=== PATIENT | male | born 1950 | race Hispanic/Latino ===

== ENCOUNTER → 2018-06-25 | Outpatient (CLI) | payer BC | END | disposition home or self-care (01) | LOC: RAH 08:36 | PROVIDERS: ATTEND Physical Medicine & Rehabilitation | DX: M65.871 Other synovitis and tenosynovitis, right ankle and foot (principal); M77.31 Calcaneal spur, right foot | CPT/HCPCS: 73721 ==

== ENCOUNTER 2019-04-23 07:55 | Day surgery (SDC) | payer BC ==
[2019-04-19 14:55] VITALS: BP 97/61
[2019-04-19 15:11] LABS: BASOPHILS % (AUTO) 0.3 % (0.0-5.0); EOSINOPHILS % (AUTO) 3.2 % (0.0-8.0); HEMATOCRIT 37.3 % (42-54); LYMPHOCYTES % (AUTO) 28.4 % (21.0-51.0); MEAN CORPUSCULAR HGB CONC 33.4 g/dL (32.0-36.0); MEAN CORPUSCULAR VOLUME 95.7 fL (79-99); MONOCYTES % (AUTO) 6.5 % (3.0-13.0); NEUTROPHILS % (AUTO) 61.6 % (40.0-77.0); PLATELET COUNT (AUTO) 284 K/uL (130-400); WHITE BLOOD COUNT (AUTO) 5.9 K/uL (4.8-10.8)
[2019-04-19 15:23] LABS: CREATININE 0.9 mg/dL (0.5-1.5); POTASSIUM 4.5 mmol/L (3.5-5.1)
[2019-04-23] VITALS (12 sets, daily range): BP systolic 111–144; BP diastolic 70–80
[~2019-04-23] VITALS: Ht 175.3 cm; Wt 86.3 kg
[~2019-04-23 07:55] MED LIST: ASPI-1181 PO; ATOR40TA71 PO; FENTANYL TP; HYDROCODONE PO; LISI-613 PO; METO-408 PO; OMEP40CA37 PO; SILD20TA14 PO; TAMS-1 PO; TRAZ-185 PO; [UNRECOGNIZED DRUG - OTHER] PO
[2019-04-23] MEDS: LACTATED RINGERS 1000ML 1,000 ML IV SCH ×2 (09:54→12:07)
[2019-04-23] MEDS: CEFAZOLIN SODIUM 1 GM VIAL IVP SCH ×2 (09:55→11:00)
[2019-04-23] MEDS ORDERED: LIDOCAINE PF 2% 5ML ABBOJECT ONE (10:40)
[2019-04-23] MEDS ORDERED: ONDANSETRON HCL 4 MG/2 ML VIAL ONE (10:41)
[2019-04-23] MEDS ORDERED: MIDAZOLAM HCL 1 MG/ML 2ML VIAL ONE (10:41)
[2019-04-23] MEDS ORDERED: PROPOFOL 10 MG/ML 20ML VIAL IV ONE (10:42)
[2019-04-23] MEDS ORDERED: ROCURONIUM 10MG/1ML SYR 10 MG/ML ML ONE (10:42)
[2019-04-23] MEDS ORDERED: ROPIVACAINE 0.5% 5MG/ML 30ML IJ ONE (10:43)
[2019-04-23] MEDS ORDERED: FENTANYL CITRATE PF 50 MCG/1 ML 2ML VIAL ONE (11:16)
[2019-04-23] MEDS ORDERED: EPHEDRINE SULFATE 50 MG/ML AMPULE ONE (11:32)
[2019-04-23] MEDS ORDERED: GLYCOPYRROLATE 1 MG/5 ML SYRINGE ONE (12:07)
[2019-04-23] MEDS ORDERED: NEOSTIGMINE 5MG/5ML SYR IV ONE (12:07)
[2019-04-23] MEDS ORDERED: KETOROLAC TROMETHAMINE 30MG/ML ONE (12:40)
[2019-04-23] MEDS ORDERED: MORPHINE SULFATE 4 MG/1ML SYG ONE (12:40)
--- NOTE | 2019-04-23 13:11 | NUR ---
RECEIVE PT RECEIVED FROM PACU VIA STRETCHER AWAKE ALERT ORIENTED X3. PT STABLE. NO COMPLAINTS MADE. DRESSING TO LEFT INGUINAL DRY AND INTACT, NO OOZING NOTED, SITE SOFT, ABDOMEN SOFT. CALL HERRON WITHIN REACH. WILL CONTINUE TO MONITOR PT. WILL CALL FOR TO COME IN TO ROOM.
--- NOTE | 2019-04-23 13:40 | NUR ---
ACTIVITY PT ASSISTED TO BATHROOM, AMBULATED SLOWLY WITHOUT ANY PROBLEMS. VOIDED 400 ML CLEAR YELLOW URINE. ABDOMEN, LEFT GROIN INCISION AREA REMAINS SOFT, DRESSING DRY AND INTACT. NO OOZING NOTED.
--- NOTE | 2019-04-23 14:00 | NUR ---
DISCHARGE PT DISCHARGED VIA WHEELCHAIR WITH . PT STABLE. NO COMPLAINTS MADE. DRESSING TO LEFT GROIN REMAINS DRY AND INTACT, NO OOZING NOTED, SITE SOFT, ABDOMEN SOFT. TOLERATED ORAL FLUIDS WELL. DISCHARGE INSTRUCTIONS GIVEN TO AND PT, VERBALIZED UNDERSTANDING.
== END 2019-04-23 14:00 | disposition home or self-care (01) ==
LOC: DAH 07:55
PROVIDERS: ATTEND Surgery
DX: K40.90 Unilateral inguinal hernia, without obstruction or gangrene, not specified as recurrent (principal); E78.5 Hyperlipidemia, unspecified; I10 Essential (primary) hypertension; M81.0 Age-related osteoporosis without current pathological fracture; F41.9 Anxiety disorder, unspecified; K21.9 Gastro-esophageal reflux disease without esophagitis; E66.9 Obesity, unspecified; F17.210 Nicotine dependence, cigarettes, uncomplicated; Z72.89 Other problems related to lifestyle; Z79.82 Long term (current) use of aspirin; Z79.899 Other long term (current) drug therapy; Z68.28 Body mass index [BMI] 28.0-28.9, adult; Z98.890 Other specified postprocedural states; Z79.2 Long term (current) use of antibiotics; Z82.49 Family history of ischemic heart disease and other diseases of the circulatory system; Z83.3 Family history of diabetes mellitus
CPT/HCPCS: 36415; 49505; 64425; 80048; 85025; 93005; A4450; A4452; C1729; C1781; J0690; J1885; J2001; J2250; J2270; J2405; J2704; J2710; J2795; J3010; J3490 ×2; J7120 ×2

== ENCOUNTER → 2019-05-13 | Outpatient (CLI) | payer BC | END | disposition home or self-care (01) | LOC: RAH 08:56 | PROVIDERS: ATTEND Internal Medicine Gastroenterology | DX: R93.3 Abnormal findings on diagnostic imaging of other parts of digestive tract (principal); R10.11 Right upper quadrant pain | CPT/HCPCS: 76700; 78227; A9537 ==

== ENCOUNTER → 2019-09-12 | Outpatient (CLI) | payer BC ==
[~2019-09-12] MED LIST changes: +OMEP40CA13 PO; -OMEP40CA37 PO
== END | disposition home or self-care (01) ==
LOC: RAH 13:26
PROVIDERS: ATTEND Physical Medicine & Rehabilitation
DX: M47.22 Other spondylosis with radiculopathy, cervical region (principal); M25.78 Osteophyte, vertebrae; M48.02 Spinal stenosis, cervical region; M25.512 Pain in left shoulder
CPT/HCPCS: 72141; 73030

== ENCOUNTER 2020-03-05 17:30 | Emergency (ER) | payer BC ==
[2020-03-05] MEDS ORDERED: IOHEXOL 350 MG/ML 100ML INFUS..BTL IV ONE (18:52)
[2020-03-05] MEDS ORDERED: SODIUM CHLORIDE 0.9% 1000ML 1,000 ML IV ONE (19:36)
== END 2020-03-05 21:13 | disposition home or self-care (01) ==
LOC: EDH 17:30
DX: S16.1XXA Strain of muscle, fascia and tendon at neck level, initial encounter (principal); S20.219A Contusion of unspecified front wall of thorax, initial encounter; I10 Essential (primary) hypertension; E78.00 Pure hypercholesterolemia, unspecified; Z90.49 Acquired absence of other specified parts of digestive tract; V49.49XA Driver injured in collision with other motor vehicles in traffic accident, initial encounter; Y93.19 Activity, other involving water and watercraft; Y92.488 Other paved roadways as the place of occurrence of the external cause; Y99.8 Other external cause status
CPT/HCPCS: 36415; 70450; 71045; 71260; 72125; 74177; 80053; 81003; 82550; 83690; 84484; 85025; 85610; 85730; 93005; 99285; J7030; Q9967

== ENCOUNTER → 2022-09-20 | Outpatient (CLI) | payer BC, MEDICARE ==
[~2022-09-20] MED LIST changes: -ASPI-1181 PO; +ASPI-1443 PO; +IOHEXOL 350 MG/ML 100ML INFUS..BTL IV ONE; -LISI-613 PO; +LISI20TA24 PO; -OMEP40CA13 PO; +OMEP40CA21 PO
== END | disposition home or self-care (01) ==
LOC: RAH 08:30
PROVIDERS: ATTEND Internal Medicine Cardiovascular Disease
DX: I71.21 Aneurysm of the ascending aorta, without rupture (principal); I70.0 Atherosclerosis of aorta; I35.1 Nonrheumatic aortic (valve) insufficiency; I51.7 Cardiomegaly; E78.00 Pure hypercholesterolemia, unspecified
CPT/HCPCS: 71275; Q9967

== ENCOUNTER 2023-11-06 05:01 | Observation (INO) | payer BC, MEDICARE ==
[2023-11-01 12:36] LABS: BASOPHILS # (AUTO) 0.02 K/uL (0.00-0.20); BASOPHILS % (AUTO) 0.4 % (0.0-5.0); EOSINOPHILS % (AUTO) 3.7 % (0.0-8.0); HEMATOCRIT 38.1 % (42-54); IMMATURE GRANULOCYTE ABSOLUTE 0.01 K/uL (0-1); LYMPHOCYTES # (AUTO) 1.6 K/uL (1.0-4.8); LYMPHOCYTES % (AUTO) 28.5 % (21.0-51.0); MEAN CORPUSCULAR HEMOGLOBIN 31.5 pg (27.0-33.0); MEAN CORPUSCULAR HGB CONC 33.3 g/dL (32.0-36.0); MEAN CORPUSCULAR VOLUME 94.5 fL (79-99); MONOCYTES # (AUTO) 0.4 K/uL (0.1-1.0); MONOCYTES % (AUTO) 7.2 % (3.0-13.0); NEUTROPHILS # (AUTO) 3.3 K/uL (1.8-7.7); PLATELET COUNT (AUTO) 213 K/uL (130-400); RED BLOOD CELL COUNT(AUTO) 4.03 MIL/uL (4.50-6.20); RED CELL DISTRIBUTION WIDTH 13.2 % (11.0-15.5); WHITE BLOOD COUNT (AUTO) 5.4 K/uL (4.8-10.8)
[2023-11-01 13:05] LABS: INR 0.98 (0.85-1.15); PROTHROMBIN TIME 11.4 SEC (9.6-11.6)
[2023-11-01 13:06] LABS: PARTIAL THROMBOPLASTIN TIME 29.7 SEC (26.3-35.5)
[2023-11-01 13:13] VITALS: BP 132/74; PULSE 69; RESP 19
[~2023-11-06] VITALS: Ht 172.7 cm; Wt 94.7 kg
[2023-11-06] VITALS (24 sets, daily range): BP systolic 133–156; BP diastolic 80–95; PULSE 60–75; RESP 15–18; O2SAT 97
[~2023-11-06 05:01] MED LIST changes: +BIO COMPLETE PO; +CETI1TAB PO; +DOCU-116 PO; +ERGO500093 PO; +ESOM20CA31 PO; -IOHEXOL 350 MG/ML 100ML INFUS..BTL IV ONE; +MAGN250C PO; +MILK THISTLE PO; +MULT-1283 PO; +PREG50CA64 PO; -TRAZ-185 PO; +TRAZ-187 PO; +VITAMIN D3 PO
[2023-11-06] MEDS ORDERED: LACTATED RINGERS 1000ML 1,000 ML IV ONE (06:19)
[2023-11-06] MEDS: CEFAZOLIN SODIUM 2 GM VIAL ONE ×2 (06:19→14:28)
[2023-11-06] MEDS ORDERED: 0.9%NACL 48.45 ML, ROPIVACAINE 0.5% 49.25ML, EPINEPH 0.5MG KETOROLAC 30MG,CLONIDINE 80MCG IV PRN ×5 (07:00)
[2023-11-06] MEDS ORDERED: MEPERIDINE-PF 25 MG/ML SYG IV ONE (08:30)
[2023-11-06] MEDS ORDERED: MEPERIDINE-PF 25 MG/ML SYG ONE (08:35)
[2023-11-06] MEDS ORDERED: PROPOFOL 10 MG/ML 20ML VIAL IV ONE (11:58)
[2023-11-06] MEDS ORDERED: LIDOCAINE PF 100MG/5ML (2%) SYRINGE 5ML ONE (11:58)
[2023-11-06] MEDS ORDERED: SUCCINYLCHOLINE CHLORIDE 20 MG/ML 10 ML VIAL ONE (11:58)
[2023-11-06] MEDS ORDERED: MIDAZOLAM HCL 1 MG/ML 2ML VIAL ONE (11:59)
[2023-11-06] MEDS ORDERED: GLYCOPYRROLATE 0.2 MG/ML 5 ML VIAL ONE (11:59)
[2023-11-06] MEDS ORDERED: DEXAMETHASONE SOD PHOSPHATE 10MG/ML 1ML VIAL ONE (11:59)
[2023-11-06] MEDS ORDERED: ONDANSETRON 4MG INJ ONE (11:59)
[2023-11-06] MEDS ORDERED: ROCURONIUM BROMIDE 10MG/1ML 5ML VL ONE (11:59)
[2023-11-06] MEDS ORDERED: NEOSTIGMINE METHYLSULFATE 1MG/ML IV ONE (11:59)
[2023-11-06] MEDS ORDERED: FENTANYL CITRATE PF 50 MCG/1 ML 2ML VIAL ONE ×3 (12:00→15:08)
[2023-11-06] MEDS ORDERED: CEFAZOLIN SODIUM 1 GM VIAL ONE (13:18)
[2023-11-06] MEDS ORDERED: GENTAMICIN SULFATE 80 MG/2 ML VIAL ONE (13:19)
[2023-11-06] MEDS: TRANEXAMIC ACID 1000MG/10ML ONE ×2 (14:20→15:57)
[2023-11-06] MEDS ORDERED: ACETAMINOPHEN 325 MG TAB PO PRN ×3 (22:00)
[2023-11-06] MEDS ORDERED: DIPHENHYDRAMINE HCL 25 MG CAPSULE PO SCH (22:00)
[2023-11-06] MEDS ORDERED: LACTULOSE 20 GM/30 ML UDCUP PO PRN (22:00)
[2023-11-06] MEDS ORDERED: CEFAZOLIN SODIUM 2 GM VIAL IVPB SCH (22:00)
[2023-11-06] MEDS ORDERED: DIPHENOXYLATE HCL/ATROPINE 2.5/0.025 MG TAB PO PRN (22:00)
[2023-11-06] MEDS ORDERED: MAG/ALUM/SIMETH 30 ML UDCUP PO PRN (22:00)
[2023-11-06] MEDS ORDERED: HYDROMORPH /0.9% NACL/PF PCA 50 ML IV PRN (22:00)
[2023-11-06] MEDS ORDERED: ACETAMINOPHEN 325 MG TAB PO SCH (22:00)
[2023-11-06] MEDS ORDERED: DiphenhydrAMINE HCL 50 MG/ML VIAL IM PRN (22:00)
[2023-11-06] MEDS ORDERED: ONDANSETRON 4MG INJ IVP PRN (22:00)
[2023-11-06] MEDS ORDERED: DIPHENHYDRAMINE HCL 25 MG CAPSULE PO PRN (22:00)
[2023-11-06] MEDS ORDERED: BENZOCAINE/MENTH/CETYLPYRD CL 1 EACH LOZENGE MM PRN (22:00)
[2023-11-06] MEDS ORDERED: TRAMADOL HCL 50 MG TABLET PO PRN (22:00)
[2023-11-06] MEDS ORDERED: ACETAMINOPHEN PO PRN (22:30)
[2023-11-06] MEDS ORDERED: NON-FORMULARY MEDICATION 1 EACH (Esomeprazole Magnesium (Nexium) 20 MG) PO PRN (22:30)
[2023-11-06] MEDS ORDERED: HYDROCODONE PO PRN (22:30)
[2023-11-06] MEDS ORDERED: TRAZODONE HCL 100 MG TABLET PO PRN (22:30)
[2023-11-06] MEDS: 0.9%NACL 1000ML 1,000 ML IV SCH (22:52)
[2023-11-06] MEDS ORDERED: HOME MEDICATION 1 EACH PO PRN (23:00)
[2023-11-06] MEDS ORDERED: COMPOUND IV REFRIGERATED 1 EACH IVSOLN MISC PRN (23:30)
[2023-11-06] MEDS: RIVAROXABAN 10 MG TABLET PO SCH (23:36)
[2023-11-06] MEDS: CEFAZOLIN SODIUM 3 GM in DEXTROSE 5%-WATER 100 ML IVPB SCH (23:36)
[2023-11-07 00:32] VITALS: BP 134/82; PULSE 89; RESP 18
[2023-11-07 03:59] VITALS: BP 104/68; PULSE 90; RESP 18
[2023-11-07 04:57] LABS: HEMATOCRIT 33.1 % (42-54); MEAN CORPUSCULAR HGB CONC 34.1 g/dL (32.0-36.0); MEAN CORPUSCULAR VOLUME 93.8 fL (79-99); RED BLOOD CELL COUNT(AUTO) 3.53 MIL/uL (4.50-6.20); RED CELL DISTRIBUTION WIDTH 13.2 % (11.0-15.5); WHITE BLOOD COUNT (AUTO) 11.9 K/uL (4.8-10.8)
[2023-11-07 05:10] LABS: CREATININE 0.7 mg/dL (0.5-1.5); POTASSIUM 3.5 mmol/L (3.5-5.1)
[2023-11-07] MEDS: CEFAZOLIN SODIUM 3 GM in DEXTROSE 5%-WATER 100 ML IVPB SCH (06:44)
[2023-11-07 08:00] VITALS: O2SAT 97
[2023-11-07] MEDS: 0.9%NACL 1000ML 1,000 ML IV SCH (08:00)
[2023-11-07] MEDS: RIVAROXABAN 10 MG TABLET PO SCH (08:45)
[2023-11-07] MEDS ORDERED: METOPROLOL SUCCINATE 25 MG TAB.SR.24H PO SCH (09:00)
[2023-11-07] MEDS ORDERED: PREGABALIN 25 MG CAP PO SCH (09:00)
[2023-11-07] MEDS ORDERED: PANTOPRAZOLE 40 MG TAB DR PO SCH (09:00)
[2023-11-07] MEDS ORDERED: DOCUSATE SODIUM 100 MG CAP PO SCH (09:00)
[2023-11-07] MEDS ORDERED: LISINOPRIL 20 MG TABLET PO SCH (09:00)
[2023-11-07] MEDS ORDERED: ATORVASTATIN 40 MG TABLET PO SCH (09:00)
[2023-11-07] MEDS ORDERED: NON-FORMULARY MEDICATION 1 EACH (Omeprazole 40 MG) PO SCH (09:00)
[2023-11-07] MEDS ORDERED: TAMSULOSIN HCL 0.4 MG CAP.ER.24H PO SCH (09:00)
[2023-11-07 11:47] VITALS: BP 107/66; PULSE 66; RESP 17
== END 2023-11-07 17:15 | disposition home or self-care (01) ==
LOC: DAH 05:01 → DAHIP 05:02 → 4CH 21:05
PROVIDERS: ADMIT Orthopaedic Surgery; ATTEND Orthopaedic Surgery
DX: M17.11 Unilateral primary osteoarthritis, right knee (principal); I10 Essential (primary) hypertension; E78.5 Hyperlipidemia, unspecified; G47.00 Insomnia, unspecified; K21.9 Gastro-esophageal reflux disease without esophagitis; N40.0 Benign prostatic hyperplasia without lower urinary tract symptoms; E66.9 Obesity, unspecified; Z68.31 Body mass index [BMI] 31.0-31.9, adult; Z79.899 Other long term (current) drug therapy; Z79.82 Long term (current) use of aspirin; Z86.2 Personal history of diseases of the blood and blood-forming organs and certain disorders involving the immune mechanism
CPT/HCPCS: 85025; 85610; 85730; 36415 ×2; 87641; 27447; 96365; 96366 ×3; 96375; 96368; 82948; 97161; 97012; 97530 ×4; 80048; 85027; 97116 ×2; G0378 ×17; A4663; J7120 ×2; A4215 ×2; A4649 ×4; J3010 ×3; J0690 ×3; J3490 ×3; J1100; J0330; J2001; J1580; J2250; J7060; J2704; J2405; J2710; J2175; A6223; A4930 ×2; C1763 ×2; C1776; A4223; A4222; A4221; A6450; J7030; A4606; Q0163

== ENCOUNTER → 2024-01-19 | Outpatient (CLI) | payer BC, MEDICARE ==
[~2024-01-19] MED LIST changes: +GADOTERATE MEGLUMINE 10 MMOL/20 ML VIAL IV ONE
== END | disposition home or self-care (01) ==
LOC: RAH 07:17
PROVIDERS: ATTEND Internal Medicine Gastroenterology
DX: R93.2 Abnormal findings on diagnostic imaging of liver and biliary tract (principal); Z90.49 Acquired absence of other specified parts of digestive tract
CPT/HCPCS: 74183; A9575

== ENCOUNTER 2024-09-03 05:44 | Observation (INO) | payer BC, MEDICARE ==
[2024-08-28 13:36] LABS: BASOPHILS # (AUTO) 0.03 K/uL (0.00-0.20); BASOPHILS % (AUTO) 0.3 % (0.0-5.0); EOSINOPHILS # (AUTO) 0.45 K/uL (0.00-0.70); EOSINOPHILS % (AUTO) 5.1 % (0.0-8.0); HEMATOCRIT 39.1 % (42-54); IMMATURE GRANULOCYTE ABSOLUTE 0.02 K/uL (0-1); LYMPHOCYTES # (AUTO) 2.3 K/uL (1.0-4.8); LYMPHOCYTES % (AUTO) 25.9 % (21.0-51.0); MEAN CORPUSCULAR HEMOGLOBIN 31.8 pg (27.0-33.0); MEAN CORPUSCULAR HGB CONC 32.5 g/dL (32.0-36.0); MEAN CORPUSCULAR VOLUME 97.8 fL (79-99); MONOCYTES # (AUTO) 0.5 K/uL (0.1-1.0); MONOCYTES % (AUTO) 5.9 % (3.0-13.0); NEUTROPHILS # (AUTO) 5.6 K/uL (1.8-7.7); NEUTROPHILS % (AUTO) 62.6 % (40.0-77.0); PLATELET COUNT (AUTO) 243 K/uL (130-400); RED CELL DISTRIBUTION WIDTH 13.3 % (11.0-15.5); WHITE BLOOD COUNT (AUTO) 8.9 K/uL (4.8-10.8)
[2024-08-28 13:38] LABS: APPEARANCE,URINE CLEAR (CLEAR); BILIRUBIN,URINE NEGATIVE (NEGATIVE); COLOR,URINE LIGHT-YELLOW (YELLOW); GLUCOSE, URINE (UA) NEGATIVE (NEGATIVE); KETONES,URINE NEGATIVE (NEGATIVE); LEUKOCYTE ESTERASE ,URINE NEGATIVE Leu/uL (NEGATIVE); NITRATE,URINE NEGATIVE (NEGATIVE); OCCULT BLOOD,URINE NEGATIVE (NEGATIVE); PH,URINE 5.5 (5.0-8.0); PROTEIN,URINE NEGATIVE (NEGATIVE); UROBILINOGEN,URINE 0.2 mg/dL (0.2-1.0)
[2024-08-28 13:39] LABS: ADD UA MICROSCOPIC NO
[2024-08-28 13:50] LABS: CREATININE 0.9 mg/dL (0.5-1.3); POTASSIUM 4.2 mmol/L (3.5-5.1)
[2024-08-28 13:51] VITALS: BP 101/62; PULSE 73; RESP 17; TEMP 97.2
[2024-08-28 13:52] LABS: INR 1.06 (0.85-1.15); PROTHROMBIN TIME 11.4 SEC (9.6-11.6)
[2024-08-28 13:53] LABS: PARTIAL THROMBOPLASTIN TIME 31.4 SEC (26.3-35.5)
[2024-09-03] VITALS (25 sets, daily range): BP systolic 97–149; BP diastolic 50–93; PULSE 64–108; RESP 13–20; TEMP 97.2–98.1; O2SAT 98
[~2024-09-03] VITALS: Ht 177.8 cm; Wt 97.1 kg
[~2024-09-03 05:44] MED LIST changes: -BIO COMPLETE PO; -CETI1TAB PO; -DOCU-116 PO; -ERGO500093 PO; -ESOM20CA31 PO; -GADOTERATE MEGLUMINE 10 MMOL/20 ML VIAL IV ONE; -MAGN250C PO; -MILK THISTLE PO; -MULT-1283 PO; -TRAZ-187 PO; +TRAZ150T79 PO; -VITAMIN D3 PO
[2024-09-03] MEDS ORDERED: dexaMETHasone SOD PHOSPHATE 10MG/ML 1ML VIAL ONE (07:10)
[2024-09-03] MEDS ORDERED: GLYCOPYRROLATE 0.2 MG/ML 5 ML VIAL ONE (07:10)
[2024-09-03] MEDS ORDERED: SUCCINYLCHOLINE CHLORIDE 20 MG/ML 10 ML VIAL ONE (07:10)
[2024-09-03] MEDS ORDERED: proPOFol 10 MG/ML 20ML VIAL IV ONE (07:10)
[2024-09-03] MEDS ORDERED: LIDOCAINE PF 100MG/5ML (2%) SYRINGE 5ML ONE (07:10)
[2024-09-03] MEDS ORDERED: FENTanyl CITRate PF 50 MCG/1 ML 2ML VIAL ONE ×3 (07:11→11:09)
[2024-09-03] MEDS ORDERED: rocuRONium bROMide 10MG/1ML 5ML VL ONE (07:11)
[2024-09-03] MEDS ORDERED: NEOSTIGMINE METHYLSULFATE 1MG/ML IV ONE (07:11)
[2024-09-03] MEDS ORDERED: ondanSETRON 4MG INJ ONE (07:11)
[2024-09-03] MEDS ORDERED: MIDAZOLAM HCL 1 MG/ML 2ML VIAL ONE (07:12)
[2024-09-03] MEDS ORDERED: ROPivacaine 0.5% 5MG/ML 30ML ONE (07:17)
[2024-09-03] MEDS: LACTATED RINGERS 1000ML 1,000 ML IV ONE (07:32)
[2024-09-03] MEDS: ceFAZolin SODIUM 2 GM VIAL ONE (07:32)
[2024-09-03] MEDS ORDERED: ceFAZolin SODIUM 1 GM VIAL ONE ×2 (07:34→09:37)
[2024-09-03] MEDS ORDERED: BUPIvacaine HCL/EPINEPHrine/PF 0.25% 10ML VIAL IJ ONE (07:35)
[2024-09-03] MEDS ORDERED: VANCOMYCIN 1G/250ML KIT 250 ML IV ONE (08:29)
[2024-09-03] MEDS: ceFAZolin SODIUM 2 GM VIAL IVPB ONE ×2 (09:14)
[2024-09-03] MEDS ORDERED: ePHEDrine SULFate 50 MG/ML AMPULE ONE ×2 (09:20→12:00)
[2024-09-03] MEDS ORDERED: FERROUS FUMARATE 324 MG TABLET PO PRN (11:30)
[2024-09-03] MEDS ORDERED: DiphenhydrAMINE HCL 50 MG/ML VIAL IVP PRN (11:30)
[2024-09-03] MEDS ORDERED: HYDROcodone/APAP 5/325 1 TAB TABLET PO PRN (11:30)
[2024-09-03] MEDS ORDERED: PoTASSium chl 10% ELIXIR 20MEQ 20 MEQ/15 ML UDCUP PO PRN (11:30)
[2024-09-03] MEDS ORDERED: ondanSETRON 4MG INJ IVP PRN (11:30)
[2024-09-03] MEDS ORDERED: PoTASSium chloRIDE 20MEQ/100ML 100 ML IV PRN (11:30)
[2024-09-03] MEDS ORDERED: ketOROlac 15MG/ML VIAL (15MG/ML) IV PRN (11:30)
[2024-09-03] MEDS ORDERED: CALCIUM CARB 500MG PO PRN (11:30)
--- NOTE | 2024-09-03 11:37 | OP ---
Operative Note: DATE OF PROCEDURE: 09/03/24 SURGEON: PA LEVI MD DEGREASER OPERATOR: [BAHMAN MALDONADO CFA] ANESTHESIA: [General anesthesia plus regional block] ANESTHESIOLOGIST/ASSOCIATE PATHOLOGIST: [Michael Jacobsen CRNA] PREOPERATIVE DIAGNOSIS: [Left knee osteoarthritis] POSTOPERATIVE DIAGNOSIS: [Left knee osteoarthritis] SYNOPSIS: [Biomet vanguard. Femur left PS 72.5. Tibia 79 fixed cruciate. Tibial liner 10 x 79/83, patella 37 x 9 mm standard] PROCEDURE: [Left total knee arthroplasty] ESTIMATED BLOOD LOSS: [150 mL] INDICATIONS: [Patient is a 73-year-old male with history chronic pain secondary to left knee osteoarthritis. The patient has been admitted for a left total knee arthroplasty after failing conservative treatment. Procedure understood, risks, benefits and possible complications and agreed signed the consent form.] DESCRIPTION OF PROCEDURE: [After adequate general anesthesia was achieved and regional block obtained the left lower extremity was prepped and draped in the usual manner previous placement of the tourniquet in the proximal thigh. The extremity was then elevated and exsanguinated with an Esmarch bandage and the tourniquet inflated to 250 mmHg the Esmarch band been then removed. With the knee in flexion a longitudinal incision was then made in the anterior aspect through the skin followed by dissection of the subcutaneous tissue. A bone infusion needle was then inserted just medial to the tibial tuberosity and through this needle we proceeded to inject into the metaphysis of the tibia a solution of 50 cc of normal saline mixed with 500 mg of vancomycin. After the needle was removed a paramedian approach was then made with the Bovie cautery cutting through the quadriceps tendon, medial patellar retinaculum and patellar tendon retinaculum. The retropatellar tendon fat was then excised and the soft tissue elements of the tibia were elevated subperiosteally and retractors were applied medially and laterally . The anterior and posterior cruciate ligaments were resected. With the use of a drill a starting hole was made in the distal femur entering the intramedullary canal and then after removal of the drill an intramedullary guide was inserted with a 5 degree valgus block that touched the distal femur and to this the distal femoral cutting guide was then applied anteriorly and was secured to the distal femur with the use of pins. The intra medullary guide was then removed and with the use of the oscillating saw we proceeded to resect the distal femur removing the fragments and the guide. The femoral sizer was then applied distally and drill holes were made removing the sizer and the 4-in-1 cutting block was then inserted and the anterior, posterior and chamfer cuts were made removing the fragments and the block. The posterior cruciate ligament retractor was then inserted posterior to the tibia and this was brought forward proceeding then to apply the external tibial alignment guide and secured the proximal cutting guide to the tibia with the use of pins. With the use of the oscillating saw the proximal cut to the tibia tibia was made. The bone fragment was removed and the trial tibia plate was chosen. At this point the menisci were removed sharply and with the use of the curved osteotome the posterior osteophytes of the femur were removed. The PS cutting guide was then inserted and the intercondylar cut was made removing the fragment and the guide. The trial components were then inserted at the femur and tibia with a trial tibial liner bringing the knee into extension noticing that the patient had a very stable knee in flexion, extension and with valgus and varus stress. The knee was maintained in extension and the patella was then addressed proceeding to measure its thickness and then with the use of the oscillating saw we removed 9 mm from the articular surface and restored the height with application of a trial component after 3 peg holes were made. The patellofemoral ligament was removed and then the patellofemoral tracking was checked noticing to be normal. At this moment all the components were removed, the tibia after the metaphyseal defect was created and while cement was being mi xed on the back table we proceeded to irrigate the joint with antibiotic solution and then cover the entry to the femoral canal with a bone plug. Once the cement was ready we proceeded to apply it first to the tibia surface inserting the final component and then to the femoral surface and inserted the final component removing the excess cement and then applying a trial liner bring ing the knee into extension for compression. Then we proceeded to irrigate the patella surface and dried it applying then bone cement and the final patellar component was inserted and was secured with application of a clamp. The joint was irrigated with a warm diluted Betadine solution while the cement dried followed by irrigation with antibiotic solution. The trial liner was removed as well as the patellar clamp and we proceeded then to irrigate the posterior aspect of the joint to remove all the remaining debris and the final tibial liner was inserted and locked against the tibia . The range of motion was checked and noticed to be adequate with full extension and flexion, no laxity in valgus or varus stress and with adequate patellofemoral tracking. The patient had no anterior or posterior drawer. After further irrigation the wound was then closed with approximation of the quadriceps tendon, patellar retinaculum and patellar tendon retinaculum with #1 Vicryl close stitches alternating with #1 Ethibond stitches. The tourniquet was then deflated and this was followed by hemostasis and closure of the subcutaneous tissue with 2-0 Monocryl inverted stitches and the skin was closed with 3-0 Monocryl subcuticularly. The wound was covered with a suction dressing followed by application of an Jesse bandage for compression and the drapes were then removed transferring the patient to the hospital bed and taken to recovery room for follow-up by anesthesia. There were no complications during the procedure.] PA LEVI MD Sep 03, 2024 11:37
[2024-09-03] MEDS: hydroMORPHone 1 MG INJ ONE ×2 (12:25→12:45)
[2024-09-03] MEDS: TRANEXAMIC ACID 1000MG/10ML ONE (12:32)
[2024-09-03] MEDS: 0.9%NACL 1000ML 1,000 ML IV SCH (14:04)
--- NOTE | 2024-09-03 14:35 | NUR ---
ORTHO COORDINATOR: TEACHING REGARDING DVT AND PNEUMONIA, PAIN EXPECTATIONS, PAIN MANAGEMENT. PATIENT IN BED. SPOUSE AT BEDSIDE. B SCD SLEEVED IN PLACE AND FUNCTIONING. INCENTIVE SPIROMETER AT BEDSIDE. PATIENT RETURN DEMONSTRATED PROPER USE OF INCENTIVE SPIROMETER AND PERFORMED FOOT FLEXION AND EXTENSION EXERCISES. PATIENT HAS RIGHT FOOT DROP AND UNABLE TO FLEX OR EXTEND FULLY. REQUESTED PATIENT KEEP SCD'S IN PLACE AND ON AT ALL TIMES. PATIENT AND VERBALIZED UNDERSTANDING. REVIEWED PAIN NUMBER SCALE. INFORMED PATIENT WE HAD MEDICATIONS TO TREAT ALL PAIN LEVELS AND NOT TO LET THE PAIN GET TO 8/10. REMINDED PATIENT MOST PAIN MEDICATIONS ARE PRN, MEANING HE NEEDS TO REQUEST TO RECEIVE. ENCOURAGED PATIENT TO PREMEDICATE 30-1 HOUR TO PHYSICAL THERAPY. PATIENT AND VERBALIZED UNDERSTANDING. PATIENT CURRENT RATES PAIN 8/10 TO TOP OF KNEE. PATIENT CONCERNED ABOUT PAIN MANAGEMENT ONCE DISCHARGED AND IF SPECIFIC MEDICATIONS COULD BE REQUESTED. INFORMED THAT DR LEVI WOULD SEND PRESCRIPTIONS AND ENCOURAGED PATIENT TO HAVE A CONVERSATION WITH PHYSICIAN REGARDING SPECIFIC MEDICATIONS. PATIENT VERBALIZED UNDERSTANDING. 1440 REPORT TO PRIMARY NURSE REGARDING PAIN LEVEL. NURSE ACKNOWLEDGED COMMUNICATION. 1445 RETURN TO ROOM. PATIENT EXPECTS TO BE DISCHARGE TOMORROW MORNING. REVIEWED CRITERIA FOR DISCHARGE (HOME HEALTH APPROVAL, DISTANCE TO WALK AND PASSING OF GAS OR SUCCESSFUL BOWEL MOVEMENT. PATIENT SPECIFICALLY REQUESTS [facility] IN [place]. CONTACT RACHELL [phone]. WILL PROVIDE TO CASE MANAGEMENT. PATIENT REPORTS MULTIPLE ISSUES WITH BACK, WILL REQUEST TERRIE MATTRESS. 1535 REPORT TO CASE MANAGEMENT. TERRIE MATRESS TO ROOM, PRIMARY NURSE NOTIFIED. NO ADDITIONAL QUESTIONS OR CONCERNS AT THIS TIME.
[2024-09-03] MEDS: HYDROcodone/APAP 5/325 1 TAB TABLET PO PRN ×2 (14:44→17:48)
[2024-09-03] MEDS: ceFAZolin SODIUM 2 GM VIAL IVP SCH (15:36)
[2024-09-03] MEDS: pregABALin 25 MG CAP PO SCH (20:07)
[2024-09-03] MEDS: trAZOdone HCL 50 MG TAB PO SCH (20:07)
[2024-09-03] MEDS: ASPIRIN 81 MG EC TAB PO SCH (20:08)
[2024-09-03] MEDS: CeleCOXib 200 MG CAP PO SCH (20:08)
[2024-09-03] MEDS: trAZOdone HCL 100 MG TABLET PO SCH (20:13)
[2024-09-03] MEDS ORDERED: CeleCOXib 200 MG CAP PO SCH (21:00)
[2024-09-04] VITALS: BP 135/80; PULSE 74; RESP 17; TEMP 97.8
[2024-09-04 03:54] VITALS: BP 119/80; PULSE 63; RESP 17; TEMP 97.7
[2024-09-04 04:56] LABS: HEMATOCRIT 32.9 % (42-54); MEAN CORPUSCULAR HEMOGLOBIN 32.6 pg (27.0-33.0); MEAN CORPUSCULAR HGB CONC 33.7 g/dL (32.0-36.0); MEAN CORPUSCULAR VOLUME 96.5 fL (79-99); RED BLOOD CELL COUNT(AUTO) 3.41 MIL/uL (4.50-6.20); RED CELL DISTRIBUTION WIDTH 13.1 % (11.0-15.5); WHITE BLOOD COUNT (AUTO) 9.3 K/uL (4.8-10.8)
[2024-09-04 05:06] LABS: CREATININE 0.8 mg/dL (0.5-1.3); POTASSIUM 3.7 mmol/L (3.5-5.1)
[2024-09-04] MEDS: PoTASSium chloRIDE 20MEQ ER 20 MEQ ERTAB PO PRN (05:38)
--- NOTE | 2024-09-04 07:54 | PN ---
Ortho postop day one. This morning patient is out of bed enjoying his breakfast seated at the bedside. Reports adequate pain control. Eager to leave home today. Vital signs are stable. Afebrile. Laboratory results reviewed. Noted to have a drop in hemoglobin and hematocrit as expected after total knee arthroplasty. Patient is asymptomatic. We will address per protocol as necessary. Operative findings discussed with the patient. Dressings intact. Ice as present to the anterior joint. Gastrocnemius a soft nontender. Negative Homans. He is alternating extending and flexing of the knee while seated in the chair. He did ambulate yesterday with physical therapy and is pending further physical therapy this morning while he awaits discharge. Voiding on his own without difficulty. Again anticipating discharge today to home health of his choice that has already been directed to case management. Assessment: Status post left total knee arthroplasty. Asymptomatic acute postoperative blood loss anemia. Plan: Continue Dr. Waddell's TKA protocol and discharge planning. Asymptomatic acute postoperative blood loss anemia addressed with the protocol Vitals/Labs Vital Signs Date Time Temp Pulse Resp B/P (MAP) Pulse Ox O2 Delivery O2 Flow Rate FiO2 09/04/24 03:54 97.7 63 17 119/80 94 Room Air 09/03/24 20:00 0 21 Laboratory Tests 09/04/24 04:40 Medications Current Medications Cefazolin Sodium 2 gm STK-MED ONCE .ROUTE; Start 09/03/24 at 07:03; Stop 09/03/24 at 07:04; Status DC Lactated Ringer's 1,000 ml @ As Directed STK-MED ONCE IV Last administered on 09/03/24at 07:32; Start 09/03/24 at 07:03; Stop 09/03/24 at 07:04; Status DC Lidocaine HCl 100 mg STK-MED ONCE .ROUTE; Start 09/03/24 at 07:10; Stop 09/03/24 at 07:10; Status DC Succinylcholine Chloride 200 mg STK-MED ONCE .ROUTE; Start 09/03/24 at 07:10; Stop 09/03/24 at 07:10; Status DC Propofol 200 mg STK-MED ONCE IV; Start 09/03/24 at 07:10; Stop 09/03/24 at 07:11; Status DC Dexamethasone Sodium Phosphate 10 mg STK-MED ONCE .ROUTE; Start 09/03/24 at 07:10; Stop 09/03/24 at 07:11; Status DC Glycopyrrolate 1 mg STK-MED ONCE .ROUTE; Start 09/03/24 at 07:10; Stop 09/03/24 at 07:11; Status DC Neostigmine Methylsulfate 10 mg STK-MED ONCE IV; Start 09/03/24 at 07:11; Stop 09/03/24 at 07:11; Status DC Ondansetron HCl 4 mg STK-MED ONCE .ROUTE; Start 09/03/24 at 07:11; Stop 09/03/24 at 07:11; Status DC Rocuronium Oakley 50 mg STK-MED ONCE .ROUTE; Start 09/03/24 at 07:11; Stop 09/03/24 at 07:11; Status DC Fentanyl Citrate 100 mcg STK-MED ONCE .ROUTE; Start 09/03/24 at 07:11; Stop 09/03/24 at 07:11; Status DC Midazolam HCl 2 mg STK-MED ONCE .ROUTE; Start 09/03/24 at 07:12; Stop 09/03/24 at 07:12; Status DC Cefazolin Sodium 2 gm STK-MED ONCE IVPB; Start 09/03/24 at 00:00; Stop 09/03/24 at 00:01; Status Cancel Cefazolin Sodium 1 gm STK-MED ONCE IRRIG; Start 09/03/24 at 00:00; Stop 09/03/24 at 00:01; Status Cancel Ropivacaine 150 mg STK-MED ONCE .ROUTE; Start 09/03/24 at 07:17; Stop 09/03/24 at 07:18; Status DC Cefazolin Sodium 1 gm STK-MED ONCE .ROUTE; Start 09/03/24 at 07:34; Stop 09/03/24 at 07:34; Status DC Bupivacaine HCl/ Epinephrine Bitart 10 ml STK-MED ONCE IJ; Start 09/03/24 at 07:35; Stop 09/03/24 at 07:35; Status DC Vancomycin HCl 250 ml @ As Directed STK-MED ONCE IV; Start 09/03/24 at 08:29; Stop 09/03/24 at 08:29; Status DC Ephedrine Sulfate 50 mg STK-MED ONCE .ROUTE; Start 09/03/24 at 09:20; Stop 09/03/24 at 09:20; Status DC Cefazolin Sodium 1 gm STK-MED ONCE .ROUTE; Start 09/03/24 at 09:37; Stop 09/03/24 at 09:37; Status DC Fentanyl Citrate 100 mcg STK-MED ONCE .ROUTE; Start 09/03/24 at 09:48; Stop 09/03/24 at 09:49; Status DC Fentanyl Citrate 100 mcg STK-MED ONCE .ROUTE; Start 09/03/24 at 11:09; Stop 09/03/24 at 11:09; Status DC Sodium Chloride 1,000 ml @ 100 mls/hr Q10H IV Last administered on 09/03/24at 14:04; Start 09/03/24 at 11:30; Stop 09/04/24 at 11:29 Polyethylene Glycol 17 gm DAILY PO; Start 09/04/24 at 09:00; Stop 10/04/24 at 08:59 Bisacodyl 10 mg DAILY PRN RC; Start 09/06/24 at 11:30; Stop 10/06/24 at 11:29 Ketorolac Tromethamine 15 mg Q6H PRN IV; Start 09/03/24 at 11:30; Stop 09/03/24 at 11:40; Status DC Ferrous Fumarate 324 mg DAILY PRN PO; Start 09/03/24 at 11:30; Stop 10/03/24 at 11:29 Ondansetron HCl 4 mg Q6H PRN IVP; Start 09/03/24 at 11:30; Stop 10/03/24 at 11:29 Calcium Carbonate 500 mg Q12H PRN PO; Start 09/03/24 at 11:30; Stop 10/03/24 at 11:29 Diphenhydramine HCl 25 mg Q6H PRN IVP; Start 09/03/24 at 11:30; Stop 10/03/24 at 11:29 Cefazolin Sodium 2 gm Q8H IVP Last administered on 09/04/24at 00:28; Start 09/03/24 at 16:30; Stop 09/04/24 at 00:31; Status DC Potassium Chloride 100 ml @ 100 mls/hr AD PRN IV; Start 09/03/24 at 11:30; Stop 10/03/24 at 11:29 Potassium Chloride 20 meq AD PRN PO; Start 09/03/24 at 11:30; Stop 10/03/24 at 11:29 Potassium Chloride 20 meq AD PRN PO Last administered on 09/04/24at 05:38; Start 09/03/24 at 11:30; Stop 10/03/24 at 11:29 Celecoxib 200 mg BID PO; Start 09/03/24 at 21:00; Stop 09/03/24 at 11:39; Status DC Acetaminophen/ Hydrocodone Bitart Q4H PRN PO; Start 09/03/24 at 11:30; Stop 09/03/24 at 11:43; Status DC Aspirin 81 mg BID PO Last administered on 09/03/24at 20:08; Start 09/03/24 at 21:00; Stop 10/03/24 at 20:59 Celecoxib 200 mg BID PO Last administered on 09/03/24at 20:08; Start 09/03/24 at 21:00; Stop 10/03/24 at 20:59 Acetaminophen/ Hydrocodone Bitart 1 tab Q4H PRN PO Last administered on 09/03/24at 17:48; Start 09/03/24 at 12:00; Stop 09/08/24 at 11:59 Acetaminophen/ Hydrocodone Bitart 2 tab Q4H PRN PO Last administered on 09/04/24at 05:39; Start 09/03/24 at 12:00; Stop 09/08/24 at 11:59 Ephedrine Sulfate 50 mg STK-MED ONCE .ROUTE; Start 09/03/24 at 12:00; Stop 09/03/24 at 12:00; Status DC Hydromorphone HCl 1 mg STK-MED ONCE .ROUTE Last administered on 09/03/24at 12:25; Start 09/03/24 at 12:13; Stop 09/03/24 at 12:13; Status DC Cefazolin Sodium 2 gm STK-MED ONCE IVPB Last administered on 09/03/24at 09:14; Start 09/03/24 at 09:14; Stop 09/03/24 at 12:33; Status DC Cefazolin Sodium 1 gm STK-MED ONCE IRRIG Last administered on 09/03/24at 10:01; Start 09/03/24 at 10:01; Stop 09/03/24 at 12:33; Status DC Hydromorphone HCl 1 mg STK-MED ONCE .ROUTE Last administered on 09/03/24at 12:45; Start 09/03/24 at 12:27; Stop 09/03/24 at 12:27; Status DC Tranexamic Acid 1,000 mg STK-MED ONCE .ROUTE Last administered on 09/03/24at 12:32; Start 09/03/24 at 12:29; Stop 09/03/24 at 12:29; Status DC Atorvastatin Calcium 40 mg AM PO; Start 09/04/24 at 09:00; Stop 10/04/24 at 08:59 Lisinopril 20 mg AM PO; Start 09/04/24 at 09:00; Stop 10/04/24 at 08:59 Metoprolol Succinate 25 mg AM PO; Start 09/04/24 at 09:00; Stop 10/04/24 at 08:59 Tamsulosin HCl 0.4 mg AM PO; Start 09/04/24 at 09:00; Stop 10/04/24 at 08:59 Pantoprazole Sodium 40 mg DAILY PO; Start 09/04/24 at 09:00; Stop 10/04/24 at 08:59 Pregabalin 50 mg TID PO Last administered on 09/03/24at 20:07; Start 09/03/24 at 21:00; Stop 10/03/24 at 20:59 Trazodone HCl 100 mg PM PO Last administered on 09/03/24at 20:13; Start 09/03/24 at 21:00; Stop 10/03/24 at 20:59 Fentanyl 50 mcg Q72H TD; Start 09/03/24 at 14:30; Stop 09/08/24 at 14:29 Trazodone HCl 50 mg HS PO Last administered on 09/03/24at 20:07; Start 09/03/24 at 21:00; Stop 10/03/24 at 20:59 LYNDA LEMONS NP Sep 04, 2024 07:54
[2024-09-04 08:00] VITALS: O2SAT 50
[2024-09-04] MEDS: PANTOPrazole 40 MG TAB DR PO SCH (09:21)
[2024-09-04] MEDS: LISINOPRIL 20 MG TABLET PO SCH (09:22)
[2024-09-04] MEDS: metOPROLol sucCINATE 25 MG TAB.SR.24H PO SCH (09:22)
[2024-09-04] MEDS: atorVAStatin 40 MG TABLET PO SCH (09:22)
[2024-09-04] MEDS: tamSULOsin HCL 0.4 MG CAP.ER.24H PO SCH (09:22)
[2024-09-04] MEDS: polyETHYLene GLYCol 3350 17 GM POWD.PACK PO SCH (09:23)
--- NOTE | 2024-09-04 12:27 | NUR ---
[facility] DC TRAINING LEAD MET WITH PT. PT IS INDEPENDENT PRIOR TO SURGERY, LIVES AT HOME WITH SPOUSE. PT HAS A STANDARD WALKER, 3IN1 COMMODE AT HOME FROM LAST SURGERY BACK IN OCTOBER. FEELS SAFE TO GO BACK HOME, STILL DRIVE, SPOUSE ABLE TO ASSIST WITH TRANSPORTATION AND NEEDS NECESSARY. DISCUSSED MD RECOMMENDATIONS FOR HOME W/HH, PT REQUESTING [facility] 5app HE HAD IT LAST SURGERY AND WOULD LIKE TO USE SAME COMPANY. CONSENT SIGNED LIA. [facility] W/HH ONCE APPROVED. CM SENT ORDER, CLINICALS, PT TO [facility] [employer] [facility] VIA SECURE FAX AND VIA SECURE EMAIL TO [email or web address]. CM SPOKE TO [facility], STATE PT HAS APPROVAL WILL CALL PT TO SCHEDULE VISIT DAY AFTER DC. PRIMARY NURSE CANDICE MADE AWARE. DR LEVI UPDATED. CM TO CONTINUE TO FOLLOW UP. Addendum: 09/04/24 at 1235 by JUAN JOHNSON LVN CM Amended: Links added.
[2024-09-04 12:33] VITALS: BP 130/87; PULSE 71; RESP 17; TEMP 98.3
[2024-09-04] MEDS ORDERED: HYDR-4060 PO (15:34)
[2024-09-04] MEDS ORDERED: AEC81 PO (15:34)
[2024-09-06] MEDS ORDERED: BisaCODYL 10 MG SUPP.RECT RC PRN (11:30)
== END 2024-09-04 18:45 | disposition home or self-care (01) ==
LOC: DAH 05:44 → DAHIP 05:45 → DAH 05:45 → 4AH 13:15
PROVIDERS: ADMIT Orthopaedic Surgery; ATTEND Orthopaedic Surgery
DX: M17.12 Unilateral primary osteoarthritis, left knee (principal); M25.562 Pain in left knee; I11.0 Hypertensive heart disease with heart failure; D62 Acute posthemorrhagic anemia; E78.00 Pure hypercholesterolemia, unspecified; Z79.899 Other long term (current) drug therapy; Z87.891 Personal history of nicotine dependence; Z98.890 Other specified postprocedural states
CPT/HCPCS: 80048 ×2; 85025; 85610; 85730; 87086; 81003; 36415 ×2; 87641; 27447; 96365; 88311; 88305; 97161; 97116 ×3; 97530 ×5; 96366; 85027; G0378 ×29; A4663; J7120 ×2; J3010 ×3; J0690 ×7; J1171 ×2; J3490 ×5; J1100; J0330; J2003; J2250; J2704; J2405; J2710; J3370; J2795; A9272; A4649 ×3; A4930 ×2; C1713; C1776; A4215; A4223 ×2; A4222; A4221; A4216